=== PATIENT | female | born 1990 | race Caucasian/White ===

== ENCOUNTER 2024-05-09 21:33 | Emergency (ER) | payer MEDICAID ==
[~2024-05-09] VITALS: Ht 167.6 cm; Wt 80.0 kg
[2024-05-09 21:42] VITALS: O2SAT 97
[2024-05-09] MEDS: LORAZEPAM 1MG TABLET PO STA (22:11)
[2024-05-09 22:34] LABS: BASOPHILS % 0.6 % (0.0-2.0); EOSINOPHILS % 0.1 % (0.0-5.0); HEMATOCRIT. 39.9 % (36.0-48.0); HEMOGLOBIN. 13.3 g/dL (12.0-16.0); LYMPHOCYTES % 17.7 % (20.0-50.0); MEAN CORPUSCULAR HEMOGLOBIN 28.2 pg (28.0-32.0); MEAN CORPUSCULAR HGB CONC 33.4 g/dL (31.0-37.0); MEAN CORPUSCULAR VOLUME 84.4 fL (81.0-99.0); MEAN PLATELET VOLUME 8.6 fl (7.4-10.4); MONOCYTES % 5.2 % (2.0-8.0); NEUTROPHILS % 76.4 % (40.0-76.0); PLATELET 397 x1000/uL (130-400); RED BLOOD CELL COUNT 4.73 mill/uL (4.2-5.4); RED CELL DISTRIBUTION WIDTH 14.5 % (11.6-14.6); WHITE BLOOD COUNT 16.3 x1000/uL (4.5-11.0)
[2024-05-09 22:40] LABS: CHLORIDE 106 mEq/L (98-107); POTASSIUM 3.5 mEq/L (3.5-5.1); SODIUM 138 mEq/L (136-145)
[2024-05-09 22:41] LABS: CALCIUM 9.2 mg/dL (8.7-10.4); CARBON DIOXIDE 24 mEq/L (21-32)
[2024-05-09 22:45] LABS: HCG SCREEN NEGATIVE
[2024-05-09 22:46] LABS: CREATININE 0.8 mg/dL (0.6-1.0); GLUCOSE 99 mg/dL (70-105); UREA NITROGEN BLOOD 9 mg/dL (9-23)
[2024-05-09 22:47] LABS: ETHANOL BLOOD < 10 mg/dL (<10)
[2024-05-10 10:24] LABS: CLARITY URINE CLOUDY (CLEAR); COLOR URINE YELLOW (YELLOW); GLUCOSE URINE NEGATIVE (NEGATIVE); KETONES URINE TRACE (NEGATIVE); LEUKOCYTE ESTERASE URINE NEGATIVE (NEGATIVE); NITRITE URINE NEGATIVE (NEGATIVE); OCCULT BLOOD URINE NEGATIVE (NEGATIVE); PH URINE 6.5 (4.5-8.0); PROTEIN URINE TRACE (NEGATIVE); SPECIFIC GRAVITY URINE 1.026 (1.005-1.030); UROBILINOGEN URINE 0.2 E.U./dL (0.2-1.0)
[2024-05-10 10:38] LABS: *AMPHETAMINES SCREEN URINE NEGATIVE (NEGATIVE)
[2024-05-10 10:39] LABS: *BARBITURATES SCREEN URINE NEGATIVE (NEGATIVE); *BENZODIAZEPINES SCREEN URINE NEGATIVE (NEGATIVE); *COCAINE SCREEN URINE NEGATIVE (NEGATIVE); CANNABINOID URINE SCREEN NEGATIVE (NEGATIVE); ECSTASY MDMA SCREEN URINE NEGATIVE (NEGATIVE); METHADONE URINE SCREEN NEGATIVE (NEGATIVE); MUCUS URINE 3+ /lpf (< = 2+); OPIATES URINE SCREEN NEGATIVE (NEGATIVE); PHENCYCLIDINE URINE SCREEN NEGATIVE (NEGATIVE); SQUAMOUS EPITHELIAL CELL URINE 3+ /lpf (RARE/1+)
[2024-05-10 10:40] LABS: WBC URINE 0-2 /hpf (0-2)
[2024-05-10 10:41] LABS: BACTERIA URINE 4+
[2024-05-11] MEDS: ARIPIPRAZOLE 5MG TABLET PO SCH (09:00)
[2024-05-13 09:43] VITALS: TEMP 37.11408
[2024-05-13 15:02] VITALS: BP 119/56; PULSE 89; RESP 18; O2SAT 100
== END 2024-05-13 17:48 | disposition home or self-care (01) ==
LOC: ER 21:33
DX: R45.851 Suicidal ideations (principal); F31.9 Bipolar disorder, unspecified; Z20.822 Contact with and (suspected) exposure to COVID-19
CPT/HCPCS: 36415; 80048; 80305; 80320; 81003; 82962; 84703; 85025; 87426; 99285; G0480